=== PATIENT | male | born 1995 | race African-American/Black ===

== ENCOUNTER 2017-06-11 10:34 | Emergency (ER) | payer OTHER, MEDICAID ==
[~2017-06-11] VITALS: Ht 185.4 cm; Wt 92.0 kg
[2017-06-11 10:35] VITALS: BP 145/89; PULSE 70; RESP 16; TEMP 98.9; O2SAT 98
[2017-06-11] MEDS ORDERED: ALBUAER3 INH (10:45)
[2017-06-11] MEDS ORDERED: ADVA250A INH (10:45)
[2017-06-11] MEDS ORDERED: methylPREDNISolone SOD SUCC 125 MG/2 ML VIAL IV PUSH ONE (11:15)
[2017-06-11] MEDS ORDERED: KETOROLAC TROMETHAMINE 30 MG/ML (IVP) VIAL IV PUSH ONE (11:15)
[2017-06-11] MEDS ORDERED: methylPREDNISolone SOD SUCC 125 MG/2 ML VIAL ONE (11:39)
[2017-06-11] MEDS ORDERED: KETOROLAC TROMETHAMINE 30 MG/ML (IVP) VIAL ONE (11:39)
[2017-06-11] MEDS: RESP: ALBUTEROL 2.5 MG/IPRATROPIUM 0.5 MG NEB (SCH) INH ×2 (11:52→11:53)
--- NOTE | 2017-06-11 11:57 | RADRPT ---
EXAM DATE/TIME: 06/11/2017 11:41 [place] COMPARISON: No previous studies available for comparison. INDICATIONS : Short of breath. MEDICAL HISTORY : None. SURGICAL HISTORY : None. ENCOUNTER: Initial ACUITY: 3 days PAIN SCORE: 0/10 LOCATION: Bilateral chest FINDINGS: A single view of the chest demonstrates the lungs to be symmetrically aerated without evidence of mas s, infiltrate or effusion. The cardiomediastinal contours are unremarkable. Osseous structures are intact. CONCLUSION: No acute disease. Ronald Floyd MD on June 11, 2017 at 11:55 Board Certified Radiologist. This report was verified electronically.
[2017-06-11 12:16] LABS: AUTOMATED NEUTROPHIL # 4.3 TH/MM3 (1.8-7.7); BASOPHIL # 0.1 TH/MM3 (0-0.2); BASOPHIL % 0.8 % (0.0-2.0); EOSINOPHIL % 12.9 % (0.0-4.0); HEMATOCRIT 49.9 % (39.0-51.0); HEMO FLAGS DIFF FINAL; LYMPH % 27.1 % (9.0-44.0); LYMPHOCYTE # 2.1 TH/MM3 (1.0-4.8); MEAN CELL VOLUME 87.7 FL (80.0-100.0); MEAN CORPUSCULAR HEMOGLOBIN 29.4 PG (27.0-34.0); MEAN CORPUSCULAR HGB CONC 33.5 % (32.0-36.0); MONO % 4.6 % (0.0-8.0); NEUT % 54.6 % (16.0-70.0); PLATELET COUNT 291 TH/MM3 (150-450); RED BLOOD COUNT 5.69 MIL/MM3 (4.50-5.90); WHITE BLOOD COUNT 7.9 TH/MM3 (4.0-11.0)
[2017-06-11 12:31] LABS: ANION GAP 4 MEQ/L (5-15); BICARBONATE 30.8 MEQ/L (21.0-32.0); BLOOD UREA NITROGEN 9 MG/DL (7-18); CHLORIDE 104 MEQ/L (98-107); GLOMERULAR FILTRATION RATE 114 ML/MIN (>89); SODIUM (NA) 139 MEQ/L (136-145)
--- NOTE | 2017-06-11 13:31 | PD ---
HPI Chief Complaint: sob Time Seen by Provider: 11:04 Travel History International Travel<30 days: No Contact w/Intl Traveler<30days: No Traveled to known affect area: No History of Present Illness HPI 21yo M with PMH of asthma here with c/o sob today. Said it feels like his asthma but he does not have any medication. Also with right sided chest pain that is sharp. Also with frontal headache that feels like his normal headache. Denies any PE/DVT, n/v, abdominal pain, focal weakness or numbness. PFSH Past Medical History Asthma: Yes Tetanus Vaccination: Unknown Influenza Vaccination: No Past Surgical History Surgical History: No Previous Surgery Social History Alcohol Use: No Tobacco Use: No Substance Use: No Allergies-Medications (Allergen,Severity, Reaction): Uncoded Allergies: SEAFOOD (Allergy, Severe, Anaphylaxis, 06/11/17) Reported Meds & Prescriptions Reported Meds & Active Scripts Active Reported Advair Diskus Inh (Fluticasone-Salmeterol Inh) 250-50 Mcg/Blist Aer 1 Puff INH BID Rinse mouth after use. Proair Hfa 8.5 GM Inh (Albuterol Sulfate) 90 Mcg/Act Aer 2 Puff INH Q4-6H PRN 108 mcg/actuation Review of Systems Except as stated in HPI: all other systems reviewed are Neg Physical Exam Narrative GENERAL: 21yo M in mild distress. SKIN: Focused skin assessment warm/dry. HEAD: Atraumatic. Normocephalic. EYES: Pupils equal and round at 3mm bilaterally. EOMI. ENT: No nasal bleeding or discharge. Mucous membranes pink and moist. NECK: No nuchal rigidity. CARDIOVASCULAR: Regular rate and rhythm. No murmur appreciated. RESPIRATORY: No accessory muscle use. Expiratory wheezing bilaterally. GASTROINTESTINAL: Abdomen soft, non-tender, nondistended. No rebound tenderness or guarding. MUSCULOSKELETAL: No obvious deformities. No clubbing. No cyanosis. No edema. NEUROLOGICAL: Awake and alert. No obvious cranial nerve deficits. Motor grossly within normal limits. Normal speech. PSYCHIATRIC: Appropriate mood and affect; insight and judgment normal. Data Data Last Documented VS Vital Signs Date Time Temp Pulse Resp B/P (MAP) Pulse Ox O2 Delivery O2 Flow Rate FiO2 06/11/17 10:46 65 18 98 Room Air 06/11/17 10:35 98.9 145/89 (107) Orders Orders Complete Blood Count With Diff (06/11/17 11:14) Basic Metabolic Panel (Bmp) (06/11/17 11:14) Troponin I (06/11/17 11:14) Chest, Single Ap (06/11/17 11:14) Methylprednisolone So Succ Inj (Solumedr (06/11/17 11:15) Albuterol-Ipratropium Neb (Duoneb Neb) (06/11/17 11:15) Ketorolac Inj (Toradol Inj) (06/11/17 11:15) Ketorolac Inj (Toradol Inj) (06/11/17 11:39) Methylprednisolone So Succ Inj (Solumedr (06/11/17 11:39) Electrocardiogram (06/11/17 ) Labs Laboratory Tests Test 06/11/17 11:35 White Blood Count 7.9 TH/MM3 Red Blood Count 5.69 MIL/MM3 Hemoglobin 16.7 GM/DL Hematocrit 49.9 % Mean Corpuscular Volume 87.7 FL Mean Corpuscular Hemoglobin 29.4 PG Mean Corpuscular Hemoglobin Concent 33.5 % Red Cell Distribution Width 14.0 % Platelet Count 291 TH/MM3 Mean Platelet Volume 8.2 FL Neutrophils (%) (Auto) 54.6 % Lymphocytes (%) (Auto) 27.1 % Monocytes (%) (Auto) 4.6 % Eosinophils (%) (Auto) 12.9 % Basophils (%) (Auto) 0.8 % Neutrophils # (Auto) 4.3 TH/MM3 Lymphocytes # (Auto) 2.1 TH/MM3 Monocytes # (Auto) 0.4 TH/MM3 Eosinophils # (Auto) 1.0 TH/MM3 Basophils # (Auto) 0.1 TH/MM3 CBC Comment DIFF FINAL Differential Comment Blood Urea Nitrogen 9 MG/DL Creatinine 1.01 MG/DL Random Glucose 92 MG/DL Calcium Level 9.4 MG/DL Sodium Level 139 MEQ/L Potassium Level 4.0 MEQ/L Chloride Level 104 MEQ/L Carbon Dioxide Level 30.8 MEQ/L Anion Gap 4 MEQ/L Estimat Glomerular Filtration Rate 114 ML/MIN Troponin I LESS THAN 0.02 NG/ML MDM Medical Decision Making Medical Screen Exam Complete: Yes Emergency Medical Condition: Yes Interpretation(s) EKG: NSR 74bpm. Normal axis. Early repolarization V2, V3. TWI III. No reciprocal changes. Differential Diagnosis Asthma exacerbation vs. Pneumonia vs. atypical chest pain vs. migraine headache. Narrative Course 21yo M with multiple complaints. It all started with sob that feels like his asthma. Then started having atypical right sided chest pain and headache. No sudden cardiac in family. No red flags for headache. Wheezing on exam. Labs reviewed, no leukocytosis. Troponin negative. CXR negative. Pt given methylprednisolone, duonebs x3 and toradol. Pt reevaluated at bedside and no longer wheezing. Denies any sob, chest pain, or headache. Pt is saturating at 99% on RA and wants to go home. Return precautions given. Diagnosis Primary Impression: Asthma exacerbation Qualified Codes: J45.21 - Mild intermittent asthma with (acute) exacerbation Patient Instructions: General Instructions Departure Forms: Tests/Procedures Additional Instructions: Please follow up with [facility] in 3-7 days. Return to the ED if symptoms worsen. Med/Other Pt SpecificInfo: Prescription(s) given Scripts Prednisone (Deltasone) 20 Mg Tab 20 MG PO BID for 5 Days, #10 TAB 0 Refills Prov: Gissell Burnham DO 06/11/17 Albuterol 18 GM Inh (Ventolin Hfa 18 GM Inh) 90 Mcg/Act Aer 2 PUFF INH Q4H Y for SHORTNESS OF BREATH, #1 INHALER 0 Refills Prov: Gissell Burnham DO 06/11/17 Disposition: 01 DISCHARGE HOME Condition: Stable Gissell Burnham DO Jun 11, 2017 13:31
[2017-06-11] MEDS ORDERED: PRED-503 PO (13:39)
[2017-06-11] MEDS ORDERED: VENTAER INH (13:39)
[2017-06-11 13:52] VITALS: BP 139/79
--- NOTE | 2017-06-12 16:49 | EKG ---
Date Performed: 06/11/2017 Time Performed: 13:38:13 PTAGE: 21 years EKG: Sinus rhythm ST ELEVATION, PROBABLY EARLY REPOLARIZATION NONSPECIFIC T-WAVE ABNORMALITY BORDERLINE ECG NO PREVIOUS TRACING Left ventricular hypertrophy with a diastolic overload pattern. DOCTOR: Lindsey Arellano Interpretating Date/Time 06/12/2017 16:48:34
== END 2017-06-11 14:07 | disposition home or self-care (01) ==
LOC: NEPE 10:34
DX: J45.901 Unspecified asthma with (acute) exacerbation (principal); R07.89 Other chest pain; R51 Headache; R94.31 Abnormal electrocardiogram [ECG] [EKG]
CPT/HCPCS: 71010; 80048; 84484; 85025; 93005; 94640; 94664; 96374; 96375; 99284; J1885; J2930

== ENCOUNTER 2017-11-18 14:53 | Emergency (ER) | payer MEDICAID, OTHER ==
[~2017-11-18] VITALS: Ht 185.4 cm; Wt 95.0 kg
[~2017-11-18 14:53] MED LIST: ADVA250A INH; ALBUAER3 INH; PRED-503 PO; VENTAER INH
[2017-11-18 14:58] VITALS: BP 159/66; PULSE 122; RESP 20; TEMP 97.6
[2017-11-18] MEDS ORDERED: EPINEPHrine HCL (1:1000) 1 MG/ML VIAL ONE (15:09)
--- NOTE | 2017-11-18 15:12 | PD ---
HPI Chief Complaint: Allergic/Adverse Reaction Time Seen by Provider: 15:07 Travel History International Travel<30 days: No Contact w/Intl Traveler<30days: No Traveled to known affect area: No History of Present Illness HPI 22-year-old male complains itching rash and shortness of breath. Patient has history of allergy to seafood. Patient exposed to seafood by an hour prior to arrival. Patient states he started having itching rash all over the body and shortness of breath. Patient denies any problem with swallowing. Patient denies any chest pain. PFSH Past Medical History Asthma: Yes Social History Alcohol Use: No Tobacco Use: No Substance Use: No Allergies-Medications (Allergen,Severity, Reaction): Uncoded Allergies: SEAFOOD (Allergy, Severe, Anaphylaxis, 06/11/17) Reported Meds & Prescriptions Reported Meds & Active Scripts Active Zantac (Ranitidine HCl) 300 Mg Tab 300 Mg PO DAILY Zyrtec (Cetirizine HCl) 10 Mg Capsule 1 Tab PO DAILY Prednisone 20 Mg Tab 20 Mg PO BID Ventolin Hfa 18 GM Inh (Albuterol Sulfate) 90 Mcg/Act Aer 2 Puff INH Q4-6H PRN Deltasone (Prednisone) 20 Mg Tab 20 Mg PO BID 5 Days Ventolin Hfa 18 GM Inh (Albuterol Sulfate) 90 Mcg/Act Aer 2 Puff INH Q4H PRN Reported Advair Diskus Inh (Fluticasone-Salmeterol Inh) 250-50 Mcg/Blist Aer 1 Puff INH BID Rinse mouth after use. Proair Hfa 8.5 GM Inh (Albuterol Sulfate) 90 Mcg/Act Aer 2 Puff INH Q4-6H PRN 108 mcg/actuation Review of Systems General / Constitutional: No: Fever Eyes: No: Visual changes HENT: No: Headaches Cardiovascular: No: Chest Pain or Discomfort Respiratory: Positive: Shortness of Breath Gastrointestinal: No: Abdominal Pain Genitourinary: No: Dysuria Musculoskeletal: No: Pain Skin: Positive Rash, Positive Itching Neurologic: No: Weakness Psychiatric: No: Depression Endocrine: No: Polydipsia Hematologic/Lymphatic: No: Easy Bruising Physical Exam Narrative GENERAL: Well-nourished, well-developed patient. SKIN: Focused skin assessment warm/dry. Patient has hives over the face, trunk , extremity. HEAD: Normocephalic. EYES: No scleral icterus. No injection or drainage. Throat: No edema. NECK: Supple, trachea midline. No JVD or lymphadenopathy. CARDIOVASCULAR: Regular rate and rhythm without murmurs, gallops, or rubs. RESPIRATORY: Breath sounds equal bilaterally. No accessory muscle use. Mild expiratory wheezes noted. GASTROINTESTINAL: Abdomen soft, non-tender, nondistended. MUSCULOSKELETAL: No cyanosis, or edema. BACK: Nontender without obvious deformity. No CVA tenderness. Data Data Last Documented VS Vital Signs Date Time Temp Pulse Resp B/P (MAP) Pulse Ox O2 Delivery O2 Flow Rate FiO2 11/18/17 16:10 80 18 151/84 (106) 100 Nasal Cannula 3.00 11/18/17 15:13 98.1 Orders Orders Ecg Monitoring (11/18/17 15:08) Iv Access Insert/Monitor (11/18/17 15:08) Oximetry (11/18/17 15:08) Diphenhydramine Inj (Benadryl Inj) (11/18/17 15:15) Methylprednisolone So Succ Inj (Solumedr (11/18/17 15:15) Famotidine Inj (Pepcid Inj) (11/18/17 15:15) Albuterol-Ipratropium Neb (Duoneb Neb) (11/18/17 15:15) Sodium Chloride 0.9% Flush (Ns Flush) (11/18/17 15:15) Epinephrine (1:1000) Inj (Adrenalin (1:1 (11/18/17 15:15) Epinephrine (1:1000) Inj (Adrenalin (1:1 (11/18/17 15:09) Ed Discharge Order (11/18/17 16:22) MDM Medical Decision Making Medical Screen Exam Complete: Yes Emergency Medical Condition: Yes Differential Diagnosis Differential diagnosis including allergic reaction former anaphylactoid reaction , angioedema. Narrative Course 22-year-old male with itching rash and shortness of breath and wheezing. History of allergy to seafood. Patient was supposed to seafood by an hour prior to arrival. Epinephrine 0.3 mg IM. Solu-Medrol 125 mg IV. Benadryl 50 mg IV. Pepcid 20 mg IV. Albuterol with Atrovent unit dose treatment 1. 1617 p.m. Patient is feeling much better. No wheezes. Diagnosis Primary Impression: Anaphylactic reaction Qualified Codes: T78.2XXA - Anaphylactic shock, unspecified, initial encounter Patient Instructions: General Instructions Additional Instructions: Take medications as directed. Follow-up with personal physician. Return immediately if chest pain shortness of breath. Med/Other Pt SpecificInfo: Prescription(s) given Scripts Epinephrine Inj (Epipen 2-George Inj) 0.3 Mg/0.3 Ml Pfpen 0.3 MG IM ONCE Y for ALLERGIC REACTION, #1 PACK 0 Refills Prov: Emil Iniguez MD 11/18/17 Ranitidine (Zantac) 300 Mg Tab 300 MG PO DAILY, #10 TAB 0 Refills Prov: Emil Iniguez MD 11/18/17 Cetirizine HCl (Zyrtec) 10 Mg Capsule 1 TAB PO DAILY, #10 Prov: Emil Iniguez MD 11/18/17 Prednisone (Prednisone) 20 Mg Tab 20 MG PO BID, #10 TAB 0 Refills Prov: Emil Iniguez MD 11/18/17 Albuterol 18 GM Inh (Ventolin Hfa 18 GM Inh) 90 Mcg/Act Aer 2 PUFF INH Q4-6H Y for SHORTNESS OF BREATH, #1 INHALER 0 Refills Prov: Emil Iniguez MD 11/18/17 Disposition: 01 DISCHARGE HOME Condition: Stable Emil Iniguez MD November 18, 2017 15:12
[2017-11-18 15:13] VITALS: BP 154/84; PULSE 98; RESP 18; TEMP 98.1; O2SAT 84
[2017-11-18] MEDS ORDERED: RESP: ALBUTEROL 2.5 MG/IPRATROPIUM 0.5 MG NEB (SCH) INH ONE (15:15)
[2017-11-18] MEDS ORDERED: methylPREDNISolone SOD SUCC 125 MG/2 ML VIAL IV PUSH ONE (15:15)
[2017-11-18] MEDS ORDERED: FAMOTIDINE 20 MG/2 ML VIAL IV PUSH ONE (15:15)
[2017-11-18] MEDS ORDERED: EPINEPHrine HCL (1:1000) 1 MG/ML VIAL IM ONE (15:15)
[2017-11-18] MEDS ORDERED: diphenhydrAMINE HCL 50 MG/ML VIAL IVP ONE (15:15)
[2017-11-18] MEDS ORDERED: SODIUM CHLORIDE 0.9% FLUSH 10 ML FLUSH IV FLUSH PRN (15:15)
[2017-11-18 15:16] VITALS: BP 154/84; PULSE 92; RESP 18; O2SAT 96
[2017-11-18 15:21] VITALS: O2SAT 100
[2017-11-18 16:10] VITALS: BP 151/84; PULSE 80; RESP 18; O2SAT 100
[2017-11-18] MEDS ORDERED: ZANT300T PO (16:21)
[2017-11-18] MEDS ORDERED: CETI10CA3 PO (16:21)
[2017-11-18] MEDS ORDERED: PRED20 PO (16:21)
[2017-11-18] MEDS ORDERED: VENTAER INH (16:21)
[2017-11-18] MEDS ORDERED: EPIP0.3I IM (16:40)
[2017-11-18 17:05] VITALS: BP 141/64
== END 2017-11-18 17:09 | disposition home or self-care (01) ==
LOC: NEPD 14:53
DX: T78.2XXA Anaphylactic shock, unspecified, initial encounter (principal)
CPT/HCPCS: 94664; 96372; 96374; 96375; 99284; J0171; J1200; J2930